=== PATIENT | male | born 1970 | race Caucasian/White ===

== ENCOUNTER 2024-01-17 09:11 | Emergency (ER) | payer OTHER ==
[~2024-01-17] VITALS: Ht 182.9 cm; Wt 88.2 kg
[2024-01-17 09:14] VITALS: BP 140/86; PULSE 91; RESP 18; TEMP 98.5; O2SAT 99
[2024-01-17] MEDS ORDERED: IBUP-1492 PO (09:16)
[2024-01-17] MEDS ORDERED: OMEP20 PO (10:15)
[2024-01-17] MEDS ORDERED: NAPR-337 PO (10:15)
== END 2024-01-17 10:54 | disposition home or self-care (01) ==
LOC: EMS 09:14
DX: S43.402A Unspecified sprain of left shoulder joint, initial encounter (principal); X50.1XXA Overexertion from prolonged static or awkward postures, initial encounter; Y93.43 Activity, gymnastics; Y92.39 Other specified sports and athletic area as the place of occurrence of the external cause; Y99.8 Other external cause status
CPT/HCPCS: 99283